=== PATIENT | male | born 1965 | race Two or more races ===

== ENCOUNTER 2025-02-28 18:53 | Emergency (ER) | payer OTHER ==
[~2025-02-28] VITALS: Ht 172.7 cm; Wt 74.8 kg
[2025-02-28] MEDS ORDERED: CRESTOR40 MG PO (19:11)
[2025-02-28 19:45] LABS: MEAN CELL VOLUME 99.3 fL (80.0-100.00); MEAN CORPUSCULAR HEMOGLOBIN 33.9 pg (27.00-32.0); MEAN CORPUSCULAR HGB CONC 34.1 g/dl (32.0-36.0); PLATELET COUNT 97 K/uL (150-450); RED BLOOD COUNT 4.73 M/uL (4.00-6.00); RED CELL DISTRIBUTION WIDTH 12.8 % (11.5-14.5)
[2025-02-28 20:03] LABS: ALBUMIN 4.2 gm/dL (3.4-5.0); BILIRUBIN TOTAL 0.8 mg/dL (0.3-1.2); CALCIUM 9.3 mg/dL (8.5-10.1); CREATININE SERUM 0.79 mg/dL (0.70-1.30); GFR 100.74; GLOBULINA 3.3 G/DL (2.4-3.5); POTASSIUM 3.76 mEq/L (3.5-5.1); TOTAL PROTEIN 7.5 gm/dL (6.4-8.2)
== END 2025-02-28 20:29 | disposition home or self-care (01) ==
LOC: ER 18:54
PROVIDERS: General Practice
DX: L29.9 Pruritus, unspecified (principal); R21 Rash and other nonspecific skin eruption